=== PATIENT | female | born 1930 | race Caucasian/White ===

== ENCOUNTER → 2017-03-31 | Outpatient (CLI) | payer MEDICARE, OTHER ==
[~2017-03-31] MED LIST: ACET500 PO; ALBU90I; ALBU90OI INH; AMLO10; AMLO10 PO; AMLO5; AMYLIPPROE PO; ASPI81EC; ATOR10 PO; Acetaminophen-1 EAC1 PO; BENZ100A PO; BIOTIN1 MG PO; BIOTIN10000 MC1 PO; BISM300CH PO; CALCAVITD PO; CALCNI; CHOL10002 PO; CLOP75 PO; CREON DR 12,001 EACH PO; CYAN500 PO; DOCU100; DOCU100 PO; Diovan320 MG PO; ESOM20; ESOM20 PO; FAMO20 PO; FENO48 PO; FENO54; FISH1000; FISH1000 PO; GABA300 PO; HYDACE5 PO; IRBE150 PO; IRBESARTAN300 MG PO; KETO10 PO; LEVFLO250 PO; LIDO5TP TOP; MAGNESIUM HYDROXIDE PO; MAPAP PM CAPLET1 TAB PO; METO10 PO; METO25ER; METO25ER PO; METPRE2; METPRE2 PO; METPRE4 PO; METR500 PO; MONDOXYNE NL100 MG PO; MONT10T; MONT10T PO; MULVITA; MULVITMINF; NITR.4SL SL; NITR100CA PO; Neurontin 300300 MG PO; Nitroglycerin0.4 MG SL; OLME20 PO; ONDA4 PO; Omeprazole20 M1 PO; PARO10; PARO20 PO; PARO25 PO; PRED20; PRESERVISION A1 EACH PO; PROACE100; PROACE100 PO; PROC10 PO; Q10; RANI150 PO; RXPROACE PO; UBID10 PO; UBID100 PO; Ultram50 MG PO; VALS80 PO; WARF2.5 PO; WARF5 PO; Zovirax800 MG PO; [UNRECOGNIZED DRUG - OTHER] PO; [UNRECOGNIZED DRUG - REMARK]
[2017-03-31 12:47] LABS: Bun/Creatinine Ratio 22.3 (12.0-20.0); Calcium, Blood 8.9 mg/dL (8.5-10.1); Creatinine, Blood 1.03 mg/dL (0.40-1.00); Potassium, Blood 4.6 mmol/L (3.5-5.5)
== END | disposition home or self-care (01) ==
LOC: LAB EV 12:23
PROVIDERS: General Practice
DX: R73.9 Hyperglycemia, unspecified (principal)
CPT/HCPCS: 80048; 83036

== ENCOUNTER → 2017-04-14 | Outpatient (CLI) | payer MEDICARE, OTHER ==
[2017-04-14 11:17] LABS: Adenovirus F 40/41 Not Detected (NOT DETECT); Astrovirus Not Detected (NOT DETECT); Campylobacter Sp Not Detected (NOT DETECT); Cryptosporidium Not Detected (NOT DETECT); Cyclospora Cayetanensis Not Detected (NOT DETECT); E. Coli O157 Not Detected (NOT DETECT); Entamoeba Histolytica Not Detected (NOT DETECT); Enteroaggregative E. coli-EAEC Not Detected (NOT DETECT); Enteropathogenic E. coli-EPEC Not Detected (NOT DETECT); Enterotoxigenic E. coli-ETEC Not Detected (NOT DETECT); Giardia Lamblia Not Detected (NOT DETECT); Norovirus GI/GII Not Detected (NOT DETECT); Plesiomonas Shigelloides Not Detected (NOT DETECT); Rotavirus A Not Detected (NOT DETECT); Salmonella Sp Not Detected (NOT DETECT); Sapovirus Not Detected (NOT DETECT); Shiga Toxin-prod E. coli-STEC Not Detected (NOT DETECT); Shigella/Enteroin E. coli-EIEC Not Detected (NOT DETECT); Vibrio Cholerae Not Detected (NOT DETECT); Vibrio Sp Not Detected (NOT DETECT); Yersinia Enterocolitica Not Detected (NOT DETECT)
== END | disposition home or self-care (01) ==
LOC: LAB EV 08:00
PROVIDERS: Physician Assistant Surgical
DX: R19.7 Diarrhea, unspecified (principal)
CPT/HCPCS: 87507

== ENCOUNTER 2017-08-08 11:03 | Observation (INO) | payer MEDICARE, OTHER ==
[~2017-08-08] VITALS: Ht 160 cm; Wt 65.8 kg
[~2017-08-08 11:03] MED LIST changes: -FAMO20 PO; -METPRE2 PO; -NITR.4SL SL; -Omeprazole20 M1 PO; -[UNRECOGNIZED DRUG - OTHER] PO
[2017-08-08] MEDS ORDERED: METPRE2 PO (11:27)
[2017-08-08 11:53] LABS: BASOPHILS ABSOLUTE AUTO 0.05 K/mm3 (0.00-0.23); BASOPHILS PERCENT AUTO 1 % (0-2); EOSINOPHILS ABSOLUTE AUTO 0.06 K/mm3 (0.00-0.68); EOSINOPHILS PERCENT AUTO 1 % (0-6); Hematocrit 42.1 % (33.0-51.0); Hemoglobin 13.5 g/dL (11.5-16.0); IMMATURE GRAN ABSOLUTE AUTO 0.08 K/mm3 (0.00-0.10); IMMATURE GRAN PERCENT AUTO 1 % (0-1); LYMPHOCYTES ABSOLUTE AUTO 0.96 K/mm3 (0.84-5.20); LYMPHOCYTES PERCENT AUTO 14 % (21-46); MONOCYTES ABSOLUTE AUTO 0.57 K/mm3 (0.16-1.47); MONOCYTES PERCENT AUTO 8 % (4-13); Mean Corpuscular HGB 30.3 pg (26.0-34.0); Mean Corpuscular HGB Conc 32.1 g/dL (31.5-36.5); Mean Corpuscular Volume 94 fL (80-100); Mean Platelet Volume 10.3 fL (9.1-12.4); NEUTROPHILS ABSOLUTE AUTO 5.32 K/mm3 (1.96-9.15); NEUTROPHILS PERCENT AUTO 76 % (41-73); Platelet Count 127 K/mm3 (150-400); RDW Standard Deviation 51.7 fL (35.1-46.3); Red Blood Cell Count 4.46 M/mm3 (3.80-5.20); White Blood Cell Count 7.04 K/mm3 (4.00-11.30)
[2017-08-08 12:04] LABS: International Normalized Ratio 1.7
[2017-08-08 12:07] LABS: Alanine Aminotransfer (ALT/SGP 28 U/L (12-78); Albumin/Globulin Ratio 0.8 (0.8-1.8); Alk Phos 95 U/L (50-136); Anion Gap 10 mmol/L (6-16); Aspartate Aminotrans (AST/SGOT 20 U/L (12-37); Bilirubin, Total 0.4 mg/dL (0.1-1.0); Blood Urea Nitrogen 18 mg/dL (8-24); Bun/Creatinine Ratio 21.1 (12.0-20.0); CO2, Blood 23 mmol/L (21-32); Calcium, Blood 8.5 mg/dL (8.5-10.1); Chloride, Blood 109 mmol/L (98-108); Creatinine, Blood 0.85 mg/dL (0.40-1.00); Globulin, Blood 3.7 g/dL (2.2-4.0); Glomerular Filtration Rate >60 (60-); Glucose, Blood 138 mg/dL (70-99); Potassium, Blood 4.1 mmol/L (3.5-5.5); Sodium, Blood 142 mmol/L (136-145); Total Protein, Blood 6.7 g/dL (6.4-8.2); Troponin I <0.015 ng/mL (0.000-0.040)
[2017-08-08 13:29] LABS: Source, Urine Clean Catch
[2017-08-08 13:42] LABS: Bilirubin, Urine Neg (Neg); Blood, Urine Neg (Neg); Color, Urine Yellow (P-Yellow); Glucose Qualitative, Urine Neg (Neg); Ketones, Urine Neg (Neg); Leukocyte Esterase, Urine 1+ (Neg); Nitrite, Urine Neg (Neg); Protein, Urine Neg (Neg); Urobilinogen, Urine NORM (Normal); pH, Urine 6.5 (5.0-8.0)
[2017-08-08 14:30] LABS: Appearance, Urine Clear (Clear)
[2017-08-08 14:35] LABS: Bacteria Not Seen /hpf; Red Blood Cells, Urine Not Seen /hpf (0-2); Squamous Epithelial Cells Not Seen /hpf (Few); White Blood Cells, Urine Not Seen /hpf (0-5)
[2017-08-08] MEDS ORDERED: [UNRECOGNIZED DRUG - OTHER] PO (16:40)
[2017-08-08] MEDS ORDERED: CREON DR 12,001 EACH PO (17:26)
[2017-08-08] MEDS ORDERED: Omeprazole20 M1 PO (17:32)
[2017-08-09 07:50] LABS: International Normalized Ratio 1.65; Prothrombin Time Results 17.4 Sec (9.7-11.5)
[2017-08-09 08:06] LABS: CHOL/HDL RATIO 2.7; Cholesterol 115 mg/dL (50-200); HDL Cholesterol 43 mg/dL (>39); LDL/HDL RATIO 0.9; Low Density Lipoprotein Chol 37 mg/dL (0-110); Triglycerides 177 mg/dL (30-160); Very Low Density Lipoprot Chol 35 mg/dL (6-32)
[2017-08-09 09:08] LABS: Source, Urine Clean Catch
[2017-08-09 09:15] LABS: Bilirubin, Urine Neg (Neg); Blood, Urine Neg (Neg); Glucose Qualitative, Urine Neg (Neg); Ketones, Urine Neg (Neg); Leukocyte Esterase, Urine Neg (Neg); Nitrite, Urine Neg (Neg); Protein, Urine Neg (Neg); Urobilinogen, Urine NORM (Normal)
[2017-08-09 09:25] LABS: Appearance, Urine Clear (Clear); Color, Urine Yellow (P-Yellow)
[2017-08-09] MEDS ORDERED: CLOP75 PO (13:46)
[2017-08-09] MEDS ORDERED: FAMO20 PO (13:47)
[2017-08-09] MEDS ORDERED: NITR.4SL SL (13:50)
== END 2017-08-09 14:14 | disposition home or self-care (01) ==
LOC: ER 11:03 → MEDS 11:04 → ENPENDDIS 08-09 11:00 → MEDS 08-09 14:14
PROVIDERS: Emergency Medicine; Internal Medicine; Physician Assistant
DX: R07.9 Chest pain, unspecified (principal); I48.2 Chronic atrial fibrillation; I25.10 Atherosclerotic heart disease of native coronary artery without angina pectoris; I12.9 Hypertensive chronic kidney disease with stage 1 through stage 4 chronic kidney disease, or unspecified chronic kidney disease; N18.3 Chronic kidney disease, stage 3 (moderate); E78.5 Hyperlipidemia, unspecified; K21.9 Gastro-esophageal reflux disease without esophagitis; G47.33 Obstructive sleep apnea (adult) (pediatric); M81.0 Age-related osteoporosis without current pathological fracture; J45.909 Unspecified asthma, uncomplicated; M35.3 Polymyalgia rheumatica; I73.9 Peripheral vascular disease, unspecified; Z90.5 Acquired absence of kidney; Z86.711 Personal history of pulmonary embolism; Z87.891 Personal history of nicotine dependence; Z88.1 Allergy status to other antibiotic agents; Z88.5 Allergy status to narcotic agent; Z88.0 Allergy status to penicillin; Z88.8 Allergy status to other drugs, medicaments and biological substances; Z79.02 Long term (current) use of antithrombotics/antiplatelets; Z79.899 Other long term (current) drug therapy; Z79.01 Long term (current) use of anticoagulants; Z86.718 Personal history of other venous thrombosis and embolism
CPT/HCPCS: 36415; 70450; 71046; 72125; 80053; 80061; 81001; 81003; 83880; 84484; 85025; 85610; 87086; 93005; 93010; 97116; 97161; 99285; G0378; G8978; G8979; G8980; J7509

== ENCOUNTER → 2017-09-19 | Outpatient (CLI) | payer MEDICARE, OTHER ==
[~2017-09-19] MED LIST changes: +FAMO20 PO; +METPRE2 PO; +NITR.4SL SL; +Omeprazole20 M1 PO; +[UNRECOGNIZED DRUG - OTHER] PO
== END ==
LOC: LAB SHORT 07:24 → PLD 07:24
DX: D48.5 Neoplasm of uncertain behavior of skin (principal)
CPT/HCPCS: 88305

== ENCOUNTER → 2017-10-05 | Outpatient (CLI) | payer MEDICARE, OTHER | END | disposition home or self-care (01) | LOC: LAB SHORT 12:54 → LAB 12:54 | DX: C44.629 Squamous cell carcinoma of skin of left upper limb, including shoulder (principal) | CPT/HCPCS: 88305 ==

== ENCOUNTER 2017-11-30 10:50 | Day surgery (SDC) | payer MEDICARE, OTHER ==
[~2017-11-30] VITALS: Ht 152.4 cm; Wt 64.7 kg
== END 2017-11-30 12:30 | disposition home or self-care (01) ==
LOC: ORSCSDS 10:50
PROVIDERS: Anesthesiology
PROC: 3E0R33Z Introduction of Anti-inflammatory into Spinal Canal, Percutaneous Approach (ICD-10-PCS; principal; 2017-11-30 12:30)
DX: M51.16 Intervertebral disc disorders with radiculopathy, lumbar region (principal); M48.062 Spinal stenosis, lumbar region with neurogenic claudication; I48.91 Unspecified atrial fibrillation; E78.00 Pure hypercholesterolemia, unspecified; I10 Essential (primary) hypertension; K21.9 Gastro-esophageal reflux disease without esophagitis; I73.9 Peripheral vascular disease, unspecified; G47.33 Obstructive sleep apnea (adult) (pediatric); M35.3 Polymyalgia rheumatica; Z79.01 Long term (current) use of anticoagulants; Z79.899 Other long term (current) drug therapy
CPT/HCPCS: J1040; J2001